=== PATIENT | female | born 1985 | race Hispanic/Latino ===

== ENCOUNTER 2018-01-18 20:09 | Emergency (ER) | payer OTHER ==
[~2018-01-18] VITALS: Ht 149.9 cm; Wt 61.2 kg
[~2018-01-18 20:09] MED LIST: ANTIBIOTIC PO; HYDROCODON-ACE1 EAC8 PO; IRON18 MG PO; KEFLEX500 MG PO; KETOPROFEN75 MG PO; MACROBID 100 M100 MG PO; METROGEL-VAGINA70 GM PV; NORCO 5-325 TA1 EACH PO; PRENATAL CAPSU1 EACH PO; PRENATAL VITAM1 EAC3 PO; TYLENOL325 MG PO; VICODIN 5-5001 EACH PO; ZOFRAN ODT4 MG PO
--- OUTSIDE RECORDS SUMMARY | 2018-01-18 20:14 | XMS ---
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 Rodney has no Care Guidelines for this patient. Diana V[facility] (12 MO.) [facility] 2 NOTE: Visits indicate total known visits. ED/C VISIT TRACKING (12 MO.) [facility]/18/2018 20:10 [facility] COMPLAINT: - 16 WEEKS , PAIN 01/16/2018 12:[address] [facility] [place] TYPE: Emergency COMPLAINT: - VAG BLEED,16 WKS PREG INPATIENT VISIT TRACKING (12 MO.) No inpatient visits to display in this time frame [email or web address]
[2018-01-18] MEDS ORDERED: PRENATABS FA T1 EACH PO (20:20)
== END 2018-01-18 21:37 | disposition home or self-care (01) ==
LOC: ED 20:09
DX: O99.89 Other specified diseases and conditions complicating pregnancy, childbirth and the puerperium (principal); R10.9 Unspecified abdominal pain; Z3A.16 16 weeks gestation of pregnancy; Z91.048 Other nonmedicinal substance allergy status; Z79.899 Other long term (current) drug therapy
CPT/HCPCS: 99283

== ENCOUNTER 2018-05-27 12:23 | Emergency (ER) | payer OTHER ==
[~2018-05-27] VITALS: Ht 149.9 cm; Wt 61.2 kg
[~2018-05-27 12:23] MED LIST changes: +PRENATABS FA T1 EACH PO
--- OUTSIDE RECORDS SUMMARY | 2018-05-27 12:26 | XMS ---
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 Rodney has no Care Guidelines for this patient. Diana VISIT COUNT (12 MO.) 3 [facility] TOTAL 3 NOTE: Visits indicate total known visits. ED/UCC VISIT TRACKING (12 MO.) 05/27/2018 12:24 [facility] [place] TYPE: Emergency COMPLAINT: - FALL 01/18/2018 20:10 [facility] [place] TYPE: Emergency COMPLAINT: - 16 WEEKS , PAIN DIAGNOSES: - Other manager intermediate (current) drug therapy - Other nonmedicinal substance allergy status - 16 weeks gestation of - Other specified diseases and conditions complicating , childbirth and the puerperium - Unspecified abdominal pain 01/16/2018 12:59 [facility] [place] TYPE: Emergency COMPLAINT: - VAG BLEED,16 WKS PREG DIAGNOSES: - Hemorrhage in early , unspecified - Other nonmedicinal substance allergy status - 16 weeks gestation of INPATIENT VISIT TRACKING (12 MO.) No inpatient visits to display in this time frame [email or web address]
== END 2018-05-27 13:45 | disposition home or self-care (01) ==
LOC: ED 12:23
DX: O99.89 Other specified diseases and conditions complicating pregnancy, childbirth and the puerperium (principal); M25.511 Pain in right shoulder; Z91.09 Other allergy status, other than to drugs and biological substances; Z3A.34 34 weeks gestation of pregnancy; W00.0XXA Fall on same level due to ice and snow, initial encounter
CPT/HCPCS: 73030; 99283

== ENCOUNTER 2018-06-20 23:18 | Inpatient (IN) | payer OTHER ==
[~2018-06-20] VITALS: Ht 152.4 cm; Wt 67.0 kg
--- NOTE | 2018-06-21 06:41 | PR ---
[facility] [address] [facility] [place], [place] [address] Signed Progress Notes IP Datetime Report Generated by CPN: 06/21/2018 06:41 PROGRESS NOTES: [id number] Impression: Normal progression of labor Plan: Continue present management VITAL SIGNS: [id number] Vital Signs: Reviewed EXAM: [id number] Dilatation: 4.5 Effacement: 90 Station: -3 Uterine Contractions: 2-3 MEMBRANES: [id number] Membrane Status: Ruptured Comments: Strip review: variable decelerations noted following AROM. Will monitor closely. Mild hypotension noted. Will bolus LR 1 L and consider ephedrine. Admission Hgb 13.9. EFW 7#1oz. Fetus A: [id number] FHR Baseline: 135 Variability: Moderate 6-25bpm Accelerations: 15X15 Decelerations: Variable FHR Category: Category II Presentation: Vertex Other Presentation: RAE Comments on Fetus A: No evidence of metabolic acidosis Fetus B: [id number] Signing Physician: Jd Hess DO Copies: ~ *Electronically Signed* 06/21/18 0641 JD HESS DO PATIENT NAME: CLEMENTEMAURO PROGRESS NOTE DATE OF : 83 PHYSICIAN: JD HESS DO RPT #: [id number] REPORT IS CONFIDENTIAL AND NOT TO BE RELEASED WITHOUT AUTHORIZATION
--- NOTE | 2018-06-21 07:23 | PR ---
[facility] [address] [facility] [place], [place] [address] Signed Progress Notes IP Datetime Report Generated by CPN: 06/21/2018 07:23 PROGRESS NOTES: [id number] Impression: Normal progression of labor Plan: Continue present management VITAL SIGNS: [id number] Vital Signs: Reviewed EXAM: [id number] Dilatation: 4.5 Effacement: 90 Station: -3 Uterine Contractions: 2-3 MEMBRANES: [id number] Membrane Status: Ruptured Comments: Pt w/ variable decelerations. Overall FHT reassuring. Will continue to monitor. Fetus A: [id number] FHR Baseline: 120 Variability: Moderate 6-25bpm Accelerations: 15X15 Decelerations: Variable FHR Category: Category II Presentation: Vertex Other Presentation: RAE Comments on Fetus A: No evidence of metabolic acidosis Fetus B: [id number] Signing Physician: Jd Hess DO Copies: ~ *Electronically Signed* 06/21/18 0723 JD HESS DO PATIENT NAME: MAURO CLEMENTE PROGRESS NOTE DATE OF : 83 PHYSICIAN: JD HESS DO RPT #: [id number] REPORT IS CONFIDENTIAL AND NOT TO BE RELEASED WITHOUT AUTHORIZATION
--- NOTE | 2018-06-21 08:48 | PR ---
[facility] [address] [facility] [place], [place] [address] Signed Progress Notes IP Datetime Report Generated by CPN: 06/21/2018 08:48 PROGRESS NOTES: [id number] Impression: Reassuring heart rate Plan: Continue present management VITAL SIGNS: [id number] Vital Signs: Reviewed EXAM: [id number] Dilatation: 4.5 Effacement: 90 Station: -3 Uterine Contractions: 2-3 MEMBRANES: [id number] Membrane Status: Ruptured Comments: Pt seen and evaluated. Doing well. Bleeding scant. Varibile decelerations again noted, but overall strip reassuring. Reviewed variables w/ pt. Pt w/ mild hypotension but denies lightheadedness or other sx. Will treat w/ ephedrine 5mg IV now and continue IV fluids. Fetus A: [id number] FHR Baseline: 120 Variability: Moderate 6-25bpm Accelerations: 15X15 Decelerations: Variable FHR Category: Category II Presentation: Vertex Other Presentation: RAE Comments on Fetus A: Overall reassuring strip w/ moderate variability Fetus B: [id number] Signing Physician: Jd Hess DO Copies: ~ *Electronically Signed* 06/21/18 0848 JD HESS DO PATIENT NAME: MAURO CLEMENTE PROGRESS NOTE DATE OF : 83 PHYSICIAN: JD HESS DO RPT #: [id number] REPORT IS CONFIDENTIAL AND NOT TO BE RELEASED WITHOUT AUTHORIZATION
--- NOTE | 2018-06-21 10:51 | PR ---
[facility] [address] [place], [place] [address] Signed Progress Notes IP Datetime Report Generated by ROLANDO: 06/21/2018 10:51 PROGRESS NOTES: [id number] Impression: Reassuring heart rate; Slow Progression of Labor Procedures: Intrauterine Pressure Catheter; Sterile Vag Exam; Sterile Speculum Exam Plan: Continue present management Other Plans: Consider amnio-infusion VITAL SIGNS: [id number] Vital Signs: Reviewed EXAM: [id number] Dilatation: 5.5 Effacement: 90 Station: -3 Uterine Contractions: q 3-4 minutes. Appears inadequate MEMBRANES: [id number] Membrane Status: Ruptured Amniotic Fluid Color: Clear Comments: Pt seen and examined. Very comfortable w/ contractions. Pt continues to have bright red bleeding. Sterile speculum exam performed. Clear amniotic fluid noted coming from os. ectropion @ 1-2 oclock appears friable and appears to be source of bleeding. Cervix slightly progressed and soft/stretchy. Reviewed variable decelerations w/ pt and recommended IUPC to further evaluate contractions and possibly treat variable decelerations w/ amnioinfusion. Pt understands and agrees. IUPC placed without difficulty. Will monitor ctxs, but they initally appear inadequate. Will consider amnioinfusion. Reviewed w/ pt. All questions answered Fetus A: [id number] FHR Baseline: 140 Variability: Moderate 6-25bpm Accelerations: None Decelerations: Early; Variable FHR Category: Category II Presentation: Vertex Other Presentation: RAE Comments on Fetus A: Continued variable decelerations. Moderate variability Fetus B: [id number] Signing Physician: Jd Hess DO Copies: *Electronically Signed* 06/21/18 105 JD HESS DO PATIENT NAME: MAURO CLEMENTE PROGRESS NOTE DATE OF : 83 PHYSICIAN: JD HESS DO RPT #: [id number] REPORT IS CONFIDENTIAL AND NOT TO BE RELEASED WITHOUT AUTHORIZATION [address] [place], [place] [address] Signed ~ *Electronically Signed* 06/21/181050 JD HESS DO PATIENT NAME: MAURO CLEMENTE PROGRESS NOTE DATE OF : 83 PHYSICIAN: JD HESS DO RPT #: [id number] REPORT IS CONFIDENTIAL AND NOT TO BE RELEASED WITHOUT AUTHORIZATION
--- NOTE | 2018-06-21 11:38 | PR ---
[facility] [address] [place], [place] [address] Signed Progress Notes IP Datetime Report Generated by CPOlivia: 06/21/2018 11:38 PROGRESS NOTES: [id number] Impression: Reassuring heart rate; Slow Progression of Labor Procedures: Intrauterine Pressure Catheter; Sterile Vag Exam; Sterile Speculum Exam Plan: Continue present management Other Plans: Consider amnio-infusion VITAL SIGNS: [id number] Vital Signs: Reviewed EXAM: [id number] Dilatation: 5.5 Effacement: 90 Station: -3 Uterine Contractions: q 3- 5 minutes. Inadequate CTXs MEMBRANES: [id number] Membrane Status: Ruptured Amniotic Fluid Color: Clear Comments: Reviewed w/ RN. Will start amnioinfusion. 300cc bolus of NS thru IUPC then continue 100cc/hr. Monitor vaginal fluid loss. If ctx continue to be inadequate and FHT improves, will start pitocin to help improve ctx adequacy. Fetus A: [id number] FHR Baseline: Indeterminate Variability: Moderate 6-25bpm Accelerations: None Decelerations: Variable FHR Category: Category II Presentation: Vertex Other Presentation: RAE Comments on Fetus A: Continued variable decelerations w/ moderate variability Fetus B: [id number] Signing Physician: Jd Hess DO Copies: ~ *Electronically Signed* 06/21/18 1138 JD HESS DO PATIENT NAME: MAURO CLEMENTE PROGRESS NOTE DATE OF : 83 PHYSICIAN: JD HESS DO RPT #: [id number] REPORT IS CONFIDENTIAL AND NOT TO BE RELEASED WITHOUT AUTHORIZATION
--- NOTE | 2018-06-21 11:39 | PR ---
[facility] [address] [place], [place] [address] Signed Progress Notes IP Datetime Report Generated by CPOlivia: 06/21/2018 11:39 PROGRESS NOTES: [id number] Impression: Reassuring heart rate; Slow Progression of Labor Procedures: Intrauterine Pressure Catheter; Sterile Vag Exam; Sterile Speculum Exam Plan: Continue present management Other Plans: Consider amnio-infusion VITAL SIGNS: H4642103 Vital Signs: Reviewed EXAM: [id number] Dilatation: 5.5 Effacement: 90 Station: -3 Uterine Contractions: q 3- 5 minutes. Inadequate CTXs MEMBRANES: [id number] Membrane Status: Ruptured Amniotic Fluid Color: Clear Comments: Reviewed w/ RN. Will start amnioinfusion. 300cc bolus of NS thru IUPC then continue 100cc/hr. Monitor vaginal fluid loss. If ctx continue to be inadequate and FHT improves, will start pitocin to help improve ctx adequacy. Fetus A: [id number] FHR Baseline: Indeterminate Variability: Moderate 6-25bpm Accelerations: None Decelerations: Variable FHR Category: Category II Presentation: Vertex Other Presentation: RAE Comments on Fetus A: Continued variable decelerations w/ moderate variability Fetus B: [id number] Signing Physician: Jd Hess DO Copies: ~ *Electronically Signed* 06/21/18 1139 JD HESS DO PATIENT NAME: MAURO CLEMENTE PROGRESS NOTE DATE OF : 83 PHYSICIAN: JD HESS DO RPT #: [id number] REPORT IS CONFIDENTIAL AND NOT TO BE RELEASED WITHOUT AUTHORIZATION
--- NOTE | 2018-06-21 12:46 | PR ---
[facility] [address] [place], [place] [address] Signed Progress Notes IP Datetime Report Generated by CPN: 06/21/2018 12:46 PROGRESS NOTES: [id number] Impression: Normal progression of labor; Reassuring heart rate Procedures: Sterile Vag Exam Plan: Continue present management; Anticipate Vaginal Delivery Other Plans: Consider amnio-infusion Informed Consent Obtain: Vaginal Delivery VITAL SIGNS: [id number] Vital Signs: Reviewed EXAM: [id number] Dilatation: 9.5 Effacement: 95 Station: 0 Uterine Contractions: irregular, inadequate MEMBRANES: [id number] Membrane Status: Ruptured Amniotic Fluid Color: Clear Comments: Pt seen and examined. Doing well. Comfortable w/ ctxs. Bleeding scant. Continued variabile decelerations despite amnioinfusion. Moderate variability and accel elicited w/ scalp stim. Cervix 9.5 and stretchy. Anticipate soon. Fetus A: [id number] FHR Baseline: 150 Variability: Moderate 6-25bpm Accelerations: 15X15 Decelerations: Late; Variable FHR Category: Category II Presentation: Vertex Other Presentation: RAE Comments on Fetus A: Moderate variability throughout. Scalp stim elicits acceleration. Anticipate soon Fetus B: [id number] Signing Physician: Jd Hess DO Copies: ~ *Electronically Signed* 06/21/18 1246 JD HESS DO PATIENT NAME: MAURO CLEMENTE PROGRESS NOTE DATE OF : 83 PHYSICIAN: JD HESS DO RPT #: [id number] REPORT IS CONFIDENTIAL AND NOT TO BE RELEASED WITHOUT AUTHORIZATION
--- NOTE | 2018-06-22 08:42 | PR ---
[facility] [address] [facility] [place], [place] [address] Signed PP Progress Notes Datetime Report Generated by CPOlivia: 06/22/2018 08:42 SUBJECTIVE: [id number] Pain: Within normal limits Nausea/Vomiting: Denies Flatus: Yes Bowel Movement: No Vital Signs: [id number] Vital Signs: Reviewed EXAM: [id number] Cardiovascular: Normal Respiratory: Normal Abdomen/Uterus: Normal Lochia: Not Done Vulva/Perineum: Not Done Breasts: Not Done CVA Tenderness: Normal Incision: Not Applicable Progress: Normal Exam Comments: Fundus firm U-2 nontender. No edema. IMPRESSION/PLAN/PROCEDURES: [id number] Impression: Normal progression Progress Notes: Pt seen and examined. Ambulating, voiding, tolerating a full diet. Pain well controlled with oral medication. Lochia minimal. without difficulty. Pt denies fevers/chills/nausea/lightheadeness. +flatus. No bowel movement. Pt desires d/c home. Reviewed discharge instructions in detail. All questions answered to pts apparent satisfaction. F/U Dr. Chun 2 wks. Signing Physician: Jd Hess DO Copies: ~ *Electronically Signed* 06/22/18 0842 JD HESS DO PATIENT NAME: MAURO CLEMENTE PROGRESS NOTE DATE OF : 83 PHYSICIAN: JD HESS DO RPT #: [id number] REPORT IS CONFIDENTIAL AND NOT TO BE RELEASED WITHOUT AUTHORIZATION
== END 2018-06-22 14:55 | disposition home or self-care (01) | DRG 807 ==
LOC: FBCO 23:18 → FBC 06-21 01:44
PROVIDERS: ADMIT Obstetrics & Gynecology
PROC: 10E0XZZ Delivery of Products of Conception, External Approach (ICD-10-PCS; principal; 2018-06-21)
PROC: 10907ZC Drainage of Amniotic Fluid, Therapeutic from Products of Conception, Via Natural or Artificial Opening (ICD-10-PCS; 2018-06-21)
PROC: 10H07YZ Insertion of Other Device into Products of Conception, Via Natural or Artificial Opening (ICD-10-PCS; 2018-06-21)
PROC: 00HU33Z Insertion of Infusion Device into Spinal Canal, Percutaneous Approach (ICD-10-PCS; 2018-06-21)
PROC: 3E0R3BZ Introduction of Anesthetic Agent into Spinal Canal, Percutaneous Approach (ICD-10-PCS; 2018-06-21)
DX: O45.93 Premature separation of placenta, unspecified, third trimester (principal); Z37.0 Single live birth; Z3A.38 38 weeks gestation of pregnancy; O43.193 Other malformation of placenta, third trimester; O76 Abnormality in fetal heart rate and rhythm complicating labor and delivery; Z88.5 Allergy status to narcotic agent; O99.344 Other mental disorders complicating childbirth; F31.9 Bipolar disorder, unspecified
CPT/HCPCS: 01960; 36415; 59025; 85027; 99213; J2590; J7120

== ENCOUNTER 2019-11-26 18:05 | Emergency (ER) | payer OTHER ==
[~2019-11-26] VITALS: Ht 165.1 cm; Wt 67.1 kg
[2019-11-26] MEDS ORDERED: ONDANSETRON ODT8 MG PO (19:05)
--- NOTE | 2019-11-26 20:02 | NUR ---
PT WAS SWABBED FOR COVID 19 FULL PPE DAWNED SAMPLE SENT TO [facility]
== END 2019-11-26 19:35 | disposition home or self-care (01) ==
LOC: ED 18:05
DX: S06.0X9A Concussion with loss of consciousness of unspecified duration, initial encounter (principal); B34.9 Viral infection, unspecified; R07.89 Other chest pain; Z91.048 Other nonmedicinal substance allergy status; Z20.828 Contact with and (suspected) exposure to other viral communicable diseases; W17.89XA Other fall from one level to another, initial encounter
CPT/HCPCS: 71045; 99284-25; A9270; C9803

== ENCOUNTER 2020-10-18 03:26 | Emergency (ER) | payer OTHER ==
[~2020-10-18] VITALS: Ht 165.1 cm; Wt 67.1 kg
[~2020-10-18 03:26] MED LIST changes: +ONDANSETRON ODT8 MG PO
--- NOTE | 2020-10-18 07:21 | EKG ---
[facility] [address] [facility] [place], [place] [address] Signed Normal sinus rhythm Normal ECG No previous ECGs available Confirmed by JUAN MORRISSEY MD ([id number]) on 10/18/2020 7:21:27 AM Electronically Signed By: JUAN MORRISSEY MD 10/18/20720 PATIENT NAME: MAURO CLEMENTE Electrocardiogram DATE OF : 83 PHYSICIAN: JUAN MORRISSEY MD REPORT #: [id number] REPORT IS CONFIDENTIAL AND NOT TO BE RELEASED WITHOUT AUTHORIZATION
== END 2020-10-18 05:41 | disposition home or self-care (01) ==
LOC: ED 03:26
DX: U07.1 COVID-19 (principal); R07.9 Chest pain, unspecified; Z91.040 Latex allergy status; Z79.899 Other long term (current) drug therapy
CPT/HCPCS: 71045; 80053; 83690; 83735; 84484; 85025; 93005; 93010; 99285-25; A9270; C9803; U0003

== ENCOUNTER 2020-11-20 17:36 | Emergency (ER) | payer OTHER ==
[~2020-11-20] VITALS: Ht 165.1 cm; Wt 67.1 kg
== END 2020-11-20 20:28 | disposition home or self-care (01) ==
LOC: ED 17:36
DX: S67.02XA Crushing injury of left thumb, initial encounter (principal); V87.8XXA Person injured in other specified noncollision transport accidents involving motor vehicle (traffic), initial encounter; Z91.048 Other nonmedicinal substance allergy status
CPT/HCPCS: 73140; 99283-25

== ENCOUNTER 2022-04-23 08:12 | Emergency (ER) | payer OTHER ==
[~2022-04-23] VITALS: Ht 165.1 cm; Wt 67.1 kg
== END 2022-04-23 09:29 | disposition home or self-care (01) ==
LOC: ED 08:12
DX: S16.1XXA Strain of muscle, fascia and tendon at neck level, initial encounter (principal); S00.12XA Contusion of left eyelid and periocular area, initial encounter; S00.11XA Contusion of right eyelid and periocular area, initial encounter; S00.93XA Contusion of unspecified part of head, initial encounter; S50.811A Abrasion of right forearm, initial encounter; S50.311A Abrasion of right elbow, initial encounter; Z91.048 Other nonmedicinal substance allergy status; Z23 Encounter for immunization; W22.8XXA Striking against or struck by other objects, initial encounter
CPT/HCPCS: 72040; 90471; 90715; 99283-25

== ENCOUNTER 2022-05-04 08:54 | Emergency (ER) | payer OTHER ==
[~2022-05-04] VITALS: Ht 165.1 cm; Wt 61.3 kg
--- OUTSIDE RECORDS SUMMARY | 2022-05-04 09:00 | XMS ---
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 EMatilde VISIT COUNT (12 MO.) [address] [place] [address] TOTAL 3 NOTE: Visits indicate total known visits. ED/UCC VISIT TRACKING (12 MO.) 05/04/2022 08:[address] [facility] [place] TYPE: Emergency COMPLAINT: - HEAD WOUND, HEADACHE, ITCHY, SPEECH ISSUES 04/23/2022 08:[address] [facility] [place] TYPE: Emergency COMPLAINT: - FALL, MANY WOUNDS DIAGNOSES: - Other nonmedicinal substance allergy status - Contusion of right hip, initial encounter - Contusion of left eyelid and periocular area, initial encounter - Strain of muscle, fascia and tendon at neck level, initial encounter - Abrasion of right forearm, initial encounter - Contusion of right eyelid and periocular area, initial encounter - Striking against or struck by other objects, initial encounter - Encounter for immunization - Abrasion of right elbow, initial encounter - Contusion of unspecified part of head, initial encounter 08/18/2021 22:44 [facility] [place] TYPE: Emergency DIAGNOSES: - Transient alteration of awareness - UNRESPONSIVE INPATIENT VISIT TRACKING (12 MO.) No inpatient visits to display in this time frame [email or web address]
== END 2022-05-04 10:25 | disposition home or self-care (01) ==
LOC: ED 08:54
DX: S06.0XAA Concussion with loss of consciousness status unknown, initial encounter (principal); V29.99XA Rider (driver) (passenger) of other motorcycle injured in unspecified traffic accident, initial encounter; Z91.048 Other nonmedicinal substance allergy status
CPT/HCPCS: 70450; 99283-25